=== PATIENT | male | born 1980 | race Caucasian/White ===

== ENCOUNTER 2024-04-08 10:15 | Outpatient (AMB) | payer OTHER, SELFPAY ==
[2024-04-08 10:24] VITALS: BP 126/90; PULSE 86; TEMP 36.6; O2SAT 97; BMI 36.4
--- NOTE | 2024-04-08 10:24 | MHC.OFFWIV ---
Intake Vital Signs 04/08/24 10:24 Height 5 ft 10 in Weight 254 lb BMI 36.4 BP 126/90 H Blood Pressure Location Lt brachial Position Sitting Pulse 86 Pulse Source Pulse Oximeter Temp 97.8 F Temp Source Temporal Artery Scan Pulse Oximetry (%) 97 Oxygen Delivery Method Room Air Intake Visit Reasons: EP sore throat/allergies Intake Note: pt is here today for sore throat and allergies started yesterday Patient Tobacco Use Status: Current someday Tobacco user Allergies No Known Allergies Allergy (Verified 04/08/24 10:34) Do you need a note to return to daycare/school/sports/work: Yes HPI HPI Comments History of Present Illness Details This is a 44-year-old male with a past medical history of hypertension, anxiety and depression presenting for evaluation of a sore throat and cough that he has had for the past 1 day. Patient denies having any fevers, chills, ear pain, chest pain or hemoptysis. Patient has not taken any medication for treatment of his discomfort. He denies having any sick contacts. [facility] Social History Patient Tobacco Use Status: Current someday Tobacco user Review of Systems Const All systems reviewed & are unremarkable except as noted in HPI and below Denies chills and Denies fever(s) Eyes Reports no additional complaints ENT Denies dizziness, Denies otalgia, Denies neck pain, Reports sore throat and Denies throat swelling Card Reports no additional complaints Resp Reports no additional complaints Musc Denies neck pain Neuro Denies dizziness Endo Reports no additional complaints Aller/Immun Reports no additional complaints and Denies throat swelling Physical Exam Vital Signs: Last Vital Signs Temp 97.8 F 04/08/24 10:24 Pulse 86 04/08/24 10:24 BP 126/90 H 04/08/24 10:24 Pulse Ox 97 04/08/24 10:24 Oxygen Delivery Method Room Air 04/08/24 10:24 BMI result Body Mass Index 36.4 Patient is afebrile. Const General: cooperative, healthy appearing, comfortable, no acute distress, well developed, alert and awake; No ill appearing or lethargic Nutritional Appearance: average body habitus Orientation/consciousness: patient oriented x3 and No lethargic Limitations: no limitations HEENT Head: Yes normocephalic Ears: hearing grossly normal bilaterally, external ears normal, TM's normal bilaterally and EAC's normal General nose exam: Normal external nose present Face and sinus: Yes normal facial exam and Yes sinuses nontender Mouth: Normal oral and palatal mucosa present and moist mucous membranes Teeth and gingiva: dentition normal Throat: Yes postnasal drainage and Yes other (There is no edema, erythema or exudates of the posterior oropharynx.) Eyes General: appearance normal, both eyes and all related structures Conjunctivae: conjunctivae normal Pupils: Equal, round and reactive pupils present EOM: EOMs intact bilaterally Neck Lymphatic: no lymphadenopathy noted Resp Effort & Inspection: normal respiratory effort, able to speak in complete sentences, no audible wheezes, no cough and no respiratory distress Auscultation: clear to auscultation bilaterally Cardio Rate: regular rate Rhythm: regular rhythm Skin General skin exam: no rashes or lesions noted Neuro General: patient oriented x3 Cranial nerves: Yes Equal, round and reactive pupils present Psych Appearance: grossly normal Mental Status: mental status grossly normal Insight: Good insight present (Psych) Judgement: Good judgement present (Psych) Results Reviewed Results Reviewed: Rapid strep is negative. Assessment & Plan Assessment & Plan (1) Acute pharyngitis: Comment: Rapid strep test is negative. Code(s): J02.9 - Acute pharyngitis, unspecified Qualifiers: Pharyngitis/tonsillitis etiology: unspecified etiology Qualified Code(s): J02.9 - Acute pharyngitis, unspecified Plan: Ibuprofen or Tylenol for discomfort, Benadryl as needed for postnasal drip. Coding Level of Care Code Est Pt Level 3 (30864) Diagnoses Acute pharyngitis, unspecified etiology J02.9 Pharyngitis/tonsillitis etiology: unspecified etiology Time Spent (min) 20
== END 2024-04-08 11:02 | disposition home or self-care (01) ==
PROVIDERS: PCP Internal Medicine; Visit Provider Physician Assistant
DX: J02.9 Acute pharyngitis, unspecified (principal)
CPT/HCPCS: 87880; 99213

== ENCOUNTER 2024-10-05 08:45 | Outpatient (AMB) | payer OTHER, SELFPAY ==
--- NOTE | 2024-10-05 08:54 | MHC.OFFWIV ---
Intake Vital Signs 10/05/24 08:57 Weight 240 lb BP 112/80 Blood Pressure Location Rt brachial Position Sitting Pulse 72 Pulse Source Pulse Oximeter Temp 98.3 F Temp Source Oral Pulse Oximetry (%) 98 Oxygen Delivery Method Room Air Intake Visit Reasons: EP LT eye concerns Intake Note: Patient here for bilat eye redness and yellow crust that started a few days ago. Patient Tobacco Use Status: Current someday Tobacco user Allergies No Known Allergies Allergy (Verified 10/05/24 08:59) Do you need a note to return to daycare/school/sports/work: Yes HPI HPI Comments History of Present Illness Details History of Present Illness The patient is a 44-year-old male presenting with eye issues. The patient reported waking up in the morning with excessive yellow pus and crusting in both eyes. Initially, the patient self-treated with leftover eye drops that he had used previously for a similar issue, providing temporary relief. However, as the day progressed, the left eye, which did not initially receive eye drops, began to bother him again. The patient purchased additional drops (Visine) for the left eye but observed continued symptoms including swelling and the appearance of a layer over the eyes. While redness was noted, the patient did not have any substantial changes in vision. Symptoms have been associated with headaches. The patient reports no prior issues except for the mentioned episode that resolved with eye drops. [facility] Social History Patient Tobacco Use Status: Current someday Tobacco user Physical Exam Vital Signs: Last Vital Signs Temp 98.3 F 10/05/24 08:57 Pulse 72 10/05/24 08:57 BP 112/80 10/05/24 08:57 Pulse Ox 98 10/05/24 08:57 Oxygen Delivery Method Room Air 10/05/24 08:57 Const General: cooperative, healthy appearing, comfortable, no acute distress and well developed Orientation/consciousness: patient oriented x3 Limitations: no limitations HEENT Head: Yes normal to inspection Eyes Other: Observable swelling in the right eye; yellow crusting present on examination in bilateral eye Alignment and Position: alignment normal and position normal Periorbital: periorbital findings normal Conjunctivae: conjunctival abnormal bilateral conjunctival injection and discharge purulent Pupils: Equal, round and reactive pupils present EOM: EOMs intact bilaterally Neck Neck: Yes normal visual inspection and Yes supple Neuro General: patient oriented x3 Cranial nerves: Yes Equal, round and reactive pupils present Assessment & Plan Assessment & Plan (1) Acute conjunctivitis, bilateral: Code(s): H10.33 - Unspecified acute conjunctivitis, bilateral Qualifiers: Acute conjunctivitis type: bacterial Qualified Code(s): H10.33 - Unspecified acute conjunctivitis, bilateral Plan: Explained how to use Erythromycin ointment and sent prescription to pharmacy. Advised any changes in vision, eye pain or fevers to go to the ED. Patient was informed and verbally consented to the use of an ambient scribe for clinic note documentation during this visit. Medications: New erythromycin Apply to both eye 4 times a day while awake 0.5 inches ophthalmic (eye) QID 7 days 7 grams 0RF Coding Level of Care Code New Pt Level 3 (84471) Diagnoses Acute bacterial conjunctivitis of both eyes H10.33 Acute conjunctivitis type: bacterial
[2024-10-05 08:57] VITALS: BP 112/80; PULSE 72; TEMP 36.8; O2SAT 98
== END 2024-10-05 09:11 | disposition home or self-care (01) ==
PROVIDERS: PCP Internal Medicine; Visit Provider Physician Assistant
DX: H10.33 Unspecified acute conjunctivitis, bilateral (principal)

== ENCOUNTER → 2024-10-05 08:45 | Outpatient (BNVA) | payer OTHER, SELFPAY | PROVIDERS: PCP Internal Medicine; Visit Provider Physician Assistant ==